=== PATIENT | female | born 1950 | race Caucasian/White ===

== ENCOUNTER 2020-03-10 15:33 | Outpatient (REF) | payer MEDICARE, OTHER, SELFPAY | END 2020-03-10 15:34 | disposition home or self-care (01) | LOC: HO.LAB 15:33 | PROVIDERS: Visit Provider Internal Medicine | DX: Z20.828 Contact with and (suspected) exposure to other viral communicable diseases (principal) | CPT/HCPCS: C9803; U0003 ==

== ENCOUNTER 2020-05-07 16:03 | Outpatient (REF) | payer MEDICARE, OTHER, SELFPAY | END 2020-05-07 16:04 | disposition home or self-care (01) | LOC: HO.LNP 16:03 | PROVIDERS: Visit Provider Specialist | DX: H16.041 Marginal corneal ulcer, right eye (principal) | CPT/HCPCS: 87071; 87102; 87205 ==

== ENCOUNTER 2020-05-14 15:47 | Outpatient (REF) | payer MEDICARE, OTHER, SELFPAY ==
--- NOTE | ~2020-05-14 | MM_ITS ---
EXAMINATION: MM SCREENING DIGITAL BREAST TOMOSYNTHESIS, BILATERAL CLINICAL INFORMATION: Screening. Asymptomatic. The lifetime risk of breast cancer based on the Tyrer-Cuzick Model is 5%. COMPARISON: Mammography: 01/04/2019, 11/27/2017, 10/19/2016, 09/17/2015 TECHNIQUE: Digital breast tomosynthesis is performed in both the craniocaudal and mediolateral oblique views along with computer-aided detection (CAD). Synthesized 2D images are generated from the tomosynthesis. Additional exaggerated left CC view is provided. FINDINGS: There are scattered areas of fibroglandular density (ACR BI-RADS breast composition Category b). The left breast has subtle architectural changes posterior upper outer quadrant 8-9 cm from nipple representing change from prior studies. Patient will be recalled for additional imaging. Right breast has an asymmetric density mid outer quadrant on CC view, 5.5 cm from nipple. There is definite correlate on MLO view. Additional views will be requested. The remainder of the breasts show no significant changes. There is a small node posterior outer left breast along posterior nipple line. There is a biopsy clip marker right breast central 1:00 position. There are scattered vascular calcifications. Scattered dermal lesions are again seen overlying both breasts. MM/MM tomosynthesis screening BI IMPRESSION: 1. Left: Architectural changes posterior upper outer quadrant. 2. Right: Asymmetric density mid outer quadrant on CC view. ASSESSMENT: BI-RADS 0: Incomplete - Need Additional Imaging Evaluation RECOMMENDATION: 1. Additional views of the bilateral breasts (bilateral rolled CC x 2; bilateral ML). 2. Targeted ultrasound if warranted after review of the additional views. 3. Radiology department staff will contact the patient for additional imaging. This patient's information was entered into a reminder system with a target due date for their next mammogram.
== END 2020-05-14 15:48 | disposition home or self-care (01) ==
LOC: HO.MAMMO 15:47
PROVIDERS: PCP Internal Medicine; Visit Provider Internal Medicine
DX: Z12.31 Encounter for screening mammogram for malignant neoplasm of breast (principal)
CPT/HCPCS: 77063; 77067

== ENCOUNTER 2020-06-12 13:52 | Outpatient (REF) | payer MEDICARE, OTHER, SELFPAY ==
--- NOTE | ~2020-06-12 | MM_ITS ---
EXAMINATION: MM DIAGNOSTIC DIGITAL BREAST TOMOSYNTHESIS, BILATERAL US BILATERAL TARGETED BREAST CLINICAL INFORMATION: Bilateral densities upper outer aspect of the breasts. COMPARISON: Mammography: 05/14/2020 and studies dating back to 02/21/2012. TECHNIQUE: Digital breast Tomosynthesis is performed. 2D images are generated from the Tomosynthesis. The following views are obtained: Bilateral craniocaudal medial and lateral rolled views and bilateral 90 degrees mediolateral views. Targeted bilateral breast ultrasound. FINDINGS: There are scattered areas of fibroglandular density (ACR BI-RADS breast composition Category b). Within the upper outer aspect of the left breast approximately 10 cm from the nipple, there is persistence of a spiculated density which is suspicious for malignancy. No associated microcalcifications are appreciated. Study of the right breast does demonstrate persistent suspicious mass. This area appears be related to superimposition of fibroglandular tissue. Targeted left breast ultrasound demonstrated at the 1 o'clock position approximately 10 cm from the nipple is an ill-defined region of hypoechoic tissue with some distal sound shadowing suspicious for possible malignancy. There is some vascularity seen about the superior margin of the lesion. Ultrasound-guided core biopsy is recommended. There is a complex cyst seen in the left breast 5 o'clock position 3 cm from the nipple. There is also a grouping of small complex cyst 2 o'clock position 3 cm from the nipple. Scanning of the left axilla did not demonstrate any abnormal lymph nodes. Lymph nodes are noted to have thin cortices without evidence of lobulation. Scanning of the upper outer aspect of the right breast did not demonstrate any abnormal cystic or solid mass. No region of abnormal distal sound shadowing appreciated. Results are discussed with the patient at time of visit. MM/MM tomosynthesis added view BI IMPRESSION: Suspicious left breast lesion 1 o'clock position 10 cm from the nipple for which ultrasound-guided core needle biopsy is recommended. No suspicious right breast abnormality appreciated. ASSESSMENT: BI-RADS 4: Suspicious. RECOMMENDATION: Ultrasound-guided core biopsy left breast lesion. The above was discussed with the patient at time of the examination. [facility] patient calibration tester called above recommendation to referring provider's office. This patient's information was entered into a reminder system with a target due date for their next mammogram.
--- NOTE | ~2020-06-12 | US_ITS ---
EXAMINATION: US DIAGNOSTIC ULTRASOUND BREAST, RIGHT CLINICAL INFORMATION: Upper-outer densities both breast. COMPARISON: Mammography of same day and studies dating back to February 21, 2012. TECHNIQUE: Ultrasound of the breast is performed with real-time barroso scale imaging and color Doppler. FINDINGS: Targeted left breast ultrasound demonstrated at the 1:00 position approximately 10 cm from the nipple an ill-defined 4 mm region of hypoechoic tissue with some distal sound shadowing suspicious for possible malignancy. There is some vascularity seen about the superior margin of the lesion. Ultrasound-guided core biopsy is recommended. There is complex cyst seen in the left breast 5:00 position 3 cm from nipple. There is also a grouping of small complex cyst 2:00 position 3 cm from the nipple. Scanning of the left axilla did not demonstrate any abnormal lymph nodes. Lymph nodes are noted to have thin cortices without evidence of loculation. Scanning of the upper outer aspect of the right breast did not demonstrate any abnormal cystic or solid mass. No region of abnormal distal sound shadowing appreciated. Results are discussed with the patient at time of visit. US/US breast RT limited IMPRESSION: Suspicious left breast lesion 1:00 position 10 cm from the nipple for which ultrasound-guided core needle biopsy is recommended. No suspicious right breast abnormality appreciated. ASSESSMENT: BI-RADS 4: Suspicious RECOMMENDATION: Ultrasound-guided core biopsy left breast lesion. The above was discussed with the patient at time of the examination. [facility] patient retail sales advisor called above recommendation to referring provider's office. .
--- NOTE | ~2020-06-12 | US_ITS ---
EXAMINATION: US DIAGNOSTIC ULTRASOUND BREAST, LEFT CLINICAL INFORMATION: Bilateral breast densities. COMPARISON: Mammography of same day and studies dating back to February 21, 2012. TECHNIQUE: Ultrasound of the breast is performed with real-time barroso scale imaging and color Doppler. FINDINGS: Targeted left breast ultrasound demonstrated at the 1:00 position approximately 10 cm from the nipple an ill-defined 4 mm region of hypoechoic tissue with some distal sound shadowing suspicious for possible malignancy. There is some vascularity seen about the superior margin of the lesion. Ultrasound-guided core biopsy is recommended. There is complex cyst seen in the left breast 5:00 position 3 cm from nipple. There is also a grouping of small complex cysts 2:00 position 3 cm from the nipple. Scanning of the left axilla did not demonstrate any abnormal lymph nodes. Lymph nodes are noted to have thin cortices without evidence of loculation. Scanning of the upper outer aspect of the right breast did not demonstrate any abnormal cystic or solid mass. No region of abnormal distal sound shadowing appreciated. Results are discussed with the patient at time of visit. US/US breast LT limited IMPRESSION: Suspicious left breast lesion 1:00 position 10 cm from the nipple for which ultrasound-guided core needle biopsy is recommended. No suspicious right breast abnormality appreciated. ASSESSMENT: BI-RADS 4: Suspicious RECOMMENDATION: Ultrasound-guided core biopsy left breast lesion. The above was discussed with the patient at time of the examination. [facility] patient materials engineer called above recommendation to referring provider's office. .
== END 2020-06-12 13:53 | disposition home or self-care (01) ==
LOC: HO.MAMMO 13:52
PROVIDERS: Visit Provider Internal Medicine
DX: R92.2 Inconclusive mammogram (principal)
CPT/HCPCS: 76642; 77062; 77066

== ENCOUNTER 2020-06-22 07:52 | Outpatient (REF) | payer MEDICARE, OTHER, SELFPAY ==
--- NOTE | ~2020-06-22 | MM_ITS ---
EXAMINATION: ULTRASOUND GUIDED CORE BIOPSY BREAST, LEFT POST PROCEDURE DIGITAL MAMMOGRAM, LEFT CLINICAL INFORMATION: Small irregular density upper outer quadrant left breast with focal shadowing on ultrasound. COMPARISON: Mammography 05/14/2020, 06/12/2020, targeted ultrasound 06/12/2020. FINDINGS: Proper informed consent is obtained from the patient after discussion of the procedure, potential risks and complications, and alternatives. Patient was given an opportunity for questions. The patient appeared to understand. The patient consented to the procedure and signed the consent form. GUIDANCE: Ultrasound-guided; aseptic technique. LESION: Small irregular hypoechoic density with shadowing under 1 cm left 2:00 position 8 cm from nipple. APPROACH: Oblique lateral medial. ANESTHESIA: 10 mL 1% lidocaine. DERMATOTOMY: Single skin yoshi dermatotomy performed. NEEDLE: 14-gauge Achieve core biopsy device with 13.5-gauge co-axial guide needle. CORES: 6. CLIP: HydroMARK; shape: open coil. POST PROCEDURE UNILATERAL DIGITAL MAMMOGRAM: The post biopsy mammogram is performed in separate room using separate digital mammography equipment from the biopsy procedure. CC and ML views are obtained. There are scattered areas of fibroglandular density (breast composition category: b). The clip marker is in position, residing adjacent to the mammographic density noted recently. Ultrasound and mammographic findings are concordant. No gross hematoma. The patient tolerated the procedure well. No immediate complications. Home instructions reviewed with the patient. Final pathology results are pending. MM/MM diagnostic mammo unilat LT IMPRESSION: 1. Status post ultrasound-guided core biopsy left breast. 2. Clip placed: HydroMARK; shape: open coil. 3. Pathology pending. An addendum report will be issued.
== END 2020-06-22 07:53 | disposition home or self-care (01) ==
LOC: HO.MAMMO 07:52
PROVIDERS: PCP Internal Medicine; Visit Provider Internal Medicine
DX: C50.412 Malignant neoplasm of upper-outer quadrant of left female breast (principal); Z17.0 Estrogen receptor positive status [ER+]
CPT/HCPCS: 19083; 77065; 88305; 88342; 88360

== ENCOUNTER 2020-10-08 09:40 | Outpatient (REF) | payer MEDICARE, OTHER, SELFPAY ==
--- NOTE | ~2020-10-08 | MM_ITS ---
EXAMINATION: BONE DENSITOMETRY CLINICAL INDICATION: Postmenopausal. COMPARISON: Previous BD dated 01/23/2014 and baseline BD dated 06/26/2007. TECHNIQUE: Using a CDP DXA System (software version: 13.1) manufactured by [employer], dual-energy x-ray absorptiometry was performed of the lumbar spine and left hip. The images are of good technical quality. Summary results are attached. FINDINGS: AP SPINE L1-L4: Current: BMD 1.239 g/cm2, Z-score 1.6, T-score 0.5, normal, 0.5% increase from previous, 0.3% decrease from baseline (<5% change is not significant). Prior: BMD 1.233 g/cm2. Baseline: BMD 1.243 g/cm2. LEFT FEMUR, NECK: Current: BMD 0.819 g/cm2, Z-score -0.2, T-score -1.6, osteopenia. Prior: BMD 0.858 g/cm2. Baseline: BMD 0.864 g/cm2. LEFT FEMUR, TOTAL: Current: BMD 0.849 g/cm2, Z-score -0.1, T-score -1.3, osteopenia, 4.4% decrease from previous, 7.5% decrease from baseline (<5% change is not significant). Prior: BMD 0.888 g/cm2. Baseline: BMD 0.918 g/cm2. IDENTIFIED RISK FACTORS: Menopause, rheumatoid arthritis. HISTORY OF FRACTURE: None listed. MEDICATIONS: Vitamin D. MM/XR DEXA axial skeleton IMPRESSION: 1. DIAGNOSIS: Osteopenia based on the lowest T-score value of -1.6 in the femoral neck applying World Health Organization criteria. 2. 10-YEAR FRACTURE RISK PREDICTION, FRAX: Major osteoporotic fracture (clinical spine, forearm, hip or shoulder) 13.3%. Hip fracture 2.4%. 3. Treatment Recommendations: NOF guidelines recommend consideration for treatment in postmenopausal women and men age 50 and older presenting with the following: -A hip or vertebral (clinical or morphometric) fracture. -T-score less than or equal to -2.5 at the femoral neck or spine after appropriate evaluation to exclude secondary causes. -Low bone mass at the hip or spine and a 10-year fracture probability by FRAX of greater than or equal to 3% for hip fracture or greater than or equal to 20% for major osteoporotic fracture based on the [place] adapted WHO algorithm. 4. Other Recommendations: All treatment decisions require clinical judgment and consideration of individual patient factors, including patient preferences, comorbidities, previous drug use, risk factors not captured in the FRAX model (e.g. frailty, falls, vitamin D deficiency, increased bone turnover, interval significant decline in bone density) and possible under or overestimation of fracture risk by FRAX. Additional medical evaluation for secondary cause of low bone mineral density may be appropriate. FUTURE SCAN RECOMMENDATION: People with diagnosed cases of osteoporosis or at high risk for fracture should have regular bone mineral density tests. For patients eligible for Medicare, routine testing is allowed once every 2 years. The testing frequency can be increased to one year for patients who have rapidly progressing disease, those who are receiving or discontinuing medical therapy to restore bone mass, or have additional risk factors.
== END 2020-10-08 09:41 | disposition home or self-care (01) ==
LOC: HO.MAMMO 09:40
PROVIDERS: Visit Provider Internal Medicine
DX: Z13.820 Encounter for screening for osteoporosis (principal); M85.80 Other specified disorders of bone density and structure, unspecified site; M06.9 Rheumatoid arthritis, unspecified; Z78.0 Asymptomatic menopausal state; Z79.899 Other long term (current) drug therapy
CPT/HCPCS: 77080

== ENCOUNTER 2021-08-11 07:55 | Day surgery (SDC) | payer MEDICARE, OTHER, SELFPAY ==
[2021-08-05 11:35] VITALS: BMI 30.6
--- NOTE | 2021-08-10 12:59 | HO.ANESPROP2 ---
Documented by User: Karen Steward NP 08/10/21 13:00 HPI - Anesthesia Eval Consult details Narrative: 70yo F for Colonoscopy [facility] Past Medical History Medical History Anxiety Breast cancer Elevated cholesterol HTN (hypertension) Surgical History Surgical History H/O colonoscopy History of lumpectomy of left breast History of total bilateral knee replacement Social History Social History (Updated 08/05/21 @ 11:34 by Giovanna Rivers RN) Patient Tobacco Use Status: Former Tobacco user Quit Date: quit age 20 Tobacco use type: Cigarette Use of substances other than those prescribed or required for medical reasons: No Are you DNR?: No Advance Directives: No Advance Directives Information Provided: Yes Meds Allergies Allergy/AdvReac Type Severity Reaction Status Date / Time No Known Allergies Allergy Unverified 11/28/19 15:05 [No Known Allergies*] Home Medications Medication Instructions Recorded Confirmed Last Taken Type anastrozole 1 mg tablet 1 tab PO DAILY 08/05/21 08/05/21 Unknown History cholecalciferol (vitamin D3) 25 25 mcg PO DAILY 08/05/21 08/05/21 Unknown History mcg (1,000 unit) capsule (Vitamin D3) citalopram 40 mg tablet 1 tab PO DAILY 08/05/21 08/05/21 Unknown History losartan 50 mg tablet 1 tab PO DAILY 08/05/21 08/11/21 08/11/21 History simvastatin 20 mg tablet 1 tab PO BEDTIME 08/05/21 08/05/21 Unknown History Exam Exam Date and Time: August 10, 2021 1259 Height,Weight and Vital Signs: Height 5 ft 5.5 in Weight 84.822 kg Assessment and Plan Assessment Anesthesia Assessment: Chart Reviewed Documented by User: Ann Melgoza MD 08/11/21 10:43 [facility] Past Medical History Medical History Anxiety Breast cancer Elevated cholesterol HTN (hypertension) Family History Family history of problems with anesthesia: No Surgical History Surgical History H/O colonoscopy History of lumpectomy of left breast History of total bilateral knee replacement History of Problems with Anesthesia: No Social History Social History (Updated 08/05/21 @ 11:34 by Giovanna Rivers RN) Patient Tobacco Use Status: Former Tobacco user Quit Date: quit age 20 Tobacco use type: Cigarette Use of substances other than those prescribed or required for medical reasons: No Are you DNR?: No Advance Directives: No Advance Directives Information Provided: Yes Meds Allergies Allergy/AdvReac Type Severity Reaction Status Date / Time No Known Allergies Allergy Unverified 11/28/19 15:05 [No Known Allergies*] Home Medications Medication Instructions Recorded Confirmed Last Taken Type anastrozole 1 mg tablet 1 tab PO DAILY 08/05/21 08/05/21 Unknown History cholecalciferol (vitamin D3) 25 25 mcg PO DAILY 08/05/21 08/05/21 Unknown History mcg (1,000 unit) capsule (Vitamin D3) citalopram 40 mg tablet 1 tab PO DAILY 08/05/21 08/05/21 Unknown History losartan 50 mg tablet 1 tab PO DAILY 08/05/21 08/11/21 08/11/21 History simvastatin 20 mg tablet 1 tab PO BEDTIME 08/05/21 08/05/21 Unknown History Exam Airway Mallampati Class: II TM Dist: >3cm Loose/Missing/Broken Teeth: Yes (Some broken) Heart: RRR Lungs: CTAB Assessment and Plan Assessment Anesthesia Assessment: Anesthesia Plan Discussed Final Anesthetic Review Family History of Problems with Anesthesia: No History of Problems with Anesthesia: No NPO: Yes ASA Class: II Final Preanesthetic Review: No Changes in Pt Med Stat, Meds/Allgs Chart Reviewed, Consent Obtained/Reviewed and Anes Risks/Benef Reviewed Patient Risk: Low Procedure Risk: Low Assessment/Block/Sedation in SS: Assess/Block/Sedation-SS Anesthetic Plan Anesthetic Plan: MAC: Disposition: Standard PACU
[2021-08-11 08:26] VITALS: BMI 30.1
[2021-08-11 10:18] VITALS: BP 145/76; PULSE 71; RESP 18; TEMP 36.5; O2SAT 96
[2021-08-11] MEDS: Lactated Ringers 1,000 ML 100 ML IVCONT (10:22)
[2021-08-11 11:38] VITALS: BP 139/71; PULSE 67; RESP 16; TEMP 36.7; O2SAT 97
--- NOTE | 2021-08-11 11:40 | P.BOP_ITS ---
Brief Operative Note Date of Service: 08/11/21 Pre-op diagnosis: Screening Post-op diagnosis: other (Colon polyps) Procedure: Colonoscopy to cecum with hot snare polypectomy x 2, and placement of 1 Resolution clip Surgeon: Miah Randall Anesthesia: MAC Was an Frame Gate Mortiser Operator used for this Procedure?: No Estimated blood loss (mL): 2.0 Pathology: other (A. Ascending colon polyps) Condition: stable Disposition: PACU
[2021-08-11 11:53] VITALS: BP 132/64; PULSE 62; RESP 16; TEMP 36.7; O2SAT 97
--- NOTE | 2021-08-11 12:28 | OP_ITS ---
SURGEON: Miah Randall MD INDICATIONS: The patient presents for evaluation of colorectal cancer screening and personal history of tubular adenoma of the colon. Full consent was obtained from her for this, including risks of bleeding and perforation. PREOPERATIVE DIAGNOSIS: POSTOPERATIVE DIAGNOSIS: PROCEDURE PERFORMED: Colonoscopy to the cecum with hot snare polypectomy x 2 and placement of 1 Resolution clip. ESTIMATED BLOOD LOSS: COMPLICATIONS: ANESTHESIA: Monitored anesthesia care. ASSISTANTS: SPECIMENS: PREOPERATIVE DIAGNOSES: Colorectal cancer screening and personal history of tubular adenoma of the colon. POSTOPERATIVE DIAGNOSES: Colorectal cancer screening and personal history of tubular adenoma of the colon, colon polyps, diverticulosis, internal and external hemorrhoids. DESCRIPTION OF PROCEDURE: The patient was placed in the left lateral decubitus position. The digital rectal exam revealed no abnormalities other than some external hemorrhoids. The Olympus video pediatric colonoscope was entered into the rectum and advanced easily to the cecum. Once in the cecum, I did identify normal-appearing cecal pouch with appendiceal orifice and a normal-appearing ileocecal valve. There was transillumination of light deep in the right lower quadrant. The entire cecum and ileocecal valve appeared normal. The scope was slowly withdrawn assessing all mucosal surfaces carefully. Preparation for the most part was very good, although there were some areas of liquid stool, which were irrigated and suctioned away as best as possible. In the proximal ascending colon were 2 polyps. One was approximately 10-12 mm in diameter and was removed by hot snare polypectomy and recovered by suction. The polypectomy site did have some oozing, but this was well controlled with cauterization by the tip of the snare. There was no sign of any residual bleeding nor polyp. Opposite that polyp was a larger flat and lobulated polyp approximately 15 mm in diameter. This was removed in piecemeal fashion by hot snare polypectomy with multiple pieces recovered by suction. Post-polypectomy, there did not appear to be any residual polyp nor bleeding. I did place a single Resolution clip on the polypectomy site with good deployment and good hemostasis. The scope was then slowly withdrawn. No further polyps were seen. There was no sign of any colitis nor angiodysplasia. There was a significant amount of diverticulosis in the descending and sigmoid colon. In the rectum, the scope was retroflexed visualizing internal hemorrhoids, but no other pathology. The rectal mucosa appeared normal. The scope was straightened and withdrawn from the patient. She tolerated the procedure well and was returned to the recovery area in stable condition. IMPRESSION: 1. Colon polyps 2. Diverticulosis. 3. Internal and external hemorrhoids. PLAN: The results of the pathology will be checked. Given the finding of the larger polyp that was removed, I would recommend a repeat colonoscopy in 1 year for further surveillance to reinspect that polypectomy site. She was advised not to use any aspirin or NSAIDs for at least 1 week. This has been discussed with her . MD AMBER Ahuja/KYM / [id number] MTDD
== END 2021-08-11 12:21 | disposition home or self-care (01) ==
PROVIDERS: PCP Internal Medicine; Visit Provider Internal Medicine
PROC: 0DJD8ZZ Inspection of Lower Intestinal Tract, Via Natural or Artificial Opening Endoscopic (ICD-10-PCS; CPT 45378; principal; 2021-08-11 09:10)
DX: Z12.11 Encounter for screening for malignant neoplasm of colon (principal); Z86.010 Personal history of colon polyps; D12.2 Benign neoplasm of ascending colon; K57.30 Diverticulosis of large intestine without perforation or abscess without bleeding; K64.8 Other hemorrhoids; K64.4 Residual hemorrhoidal skin tags; I10 Essential (primary) hypertension; E78.5 Hyperlipidemia, unspecified; F41.1 Generalized anxiety disorder; Z85.3 Personal history of malignant neoplasm of breast; Z92.3 Personal history of irradiation; Z96.653 Presence of artificial knee joint, bilateral; Z87.891 Personal history of nicotine dependence
CPT/HCPCS: 45385; 88305

== ENCOUNTER 2023-08-14 11:24 | Day surgery (SDC) | payer MEDICARE, OTHER, SELFPAY ==
--- NOTE | 2023-08-11 09:59 | P.CONAN_ITS ---
Documented by User: Karen Steward NP 08/11/23 09:59 HPI - Anesthesia Eval Consult details Narrative: 72yo F for Colonoscopy [facility] Past Medical History Medical History (Updated 08/11/23 @ 08:30 by Gretel Reyes, JESSIKA) Cataract Breast cancer Anxiety Elevated cholesterol HTN (hypertension) Family History Family history of problems with anesthesia: No Surgical History Surgical History History of total bilateral knee replacement History of lumpectomy of left breast H/O colonoscopy History of Problems with Anesthesia: No Social History Social History (Updated 08/05/21 @ 11:34 by Giovanna Rivers RN) Patient Tobacco Use Status: Former Tobacco user Tobacco use type: Cigarette Use of substances other than those prescribed or required for medical reasons: No Are you DNR?: No Advance Directives: No Advance Directives Information Provided: Yes Meds Allergies Allergy/AdvReac Type Severity Reaction Status Date / Time No Known Allergies Allergy Verified 08/14/23 11:51 [No Known Allergies*] Home Medications ?Medication ?Instructions ?Recorded ?Confirmed ?Last Taken ?Type anastrozole 1 mg tablet 1 tab PO DAILY 08/05/21 08/05/21 Unknown History cholecalciferol (vitamin D3) 25 25 mcg PO DAILY 08/05/21 08/05/21 Unknown History mcg (1,000 unit) capsule (Vitamin D3) citalopram 40 mg tablet 1 tab PO DAILY 08/05/21 08/05/21 Unknown History losartan 50 mg tablet 1 tab PO DAILY 08/05/21 08/11/21 08/13/23 History simvastatin 20 mg tablet 1 tab PO BEDTIME 08/05/21 08/05/21 Unknown History Assessment and Plan Assessment Anesthesia Assessment: Chart Reviewed Final Anesthetic Review Family History of Problems with Anesthesia: No History of Problems with Anesthesia: No Documented by User: Nathen Abad MD 08/14/23 12:19 [facility] Past Medical History Medical History (Updated 08/11/23 @ 08:30 by Gretel Reyes, JESSIKA) Cataract Breast cancer Anxiety Elevated cholesterol HTN (hypertension) Surgical History Surgical History History of total bilateral knee replacement History of lumpectomy of left breast H/O colonoscopy Social History Social History (Updated 08/05/21 @ 11:34 by Giovanna Rivers RN) Patient Tobacco Use Status: Former Tobacco user Tobacco use type: Cigarette Use of substances other than those prescribed or required for medical reasons: No Are you DNR?: No Advance Directives: No Advance Directives Information Provided: Yes Meds Allergies Allergy/AdvReac Type Severity Reaction Status Date / Time No Known Allergies Allergy Verified 08/14/23 11:51 [No Known Allergies*] Home Medications ?Medication ?Instructions ?Recorded ?Confirmed ?Last Taken ?Type anastrozole 1 mg tablet 1 tab PO DAILY 08/05/21 08/05/21 Unknown History cholecalciferol (vitamin D3) 25 25 mcg PO DAILY 08/05/21 08/05/21 Unknown History mcg (1,000 unit) capsule (Vitamin D3) citalopram 40 mg tablet 1 tab PO DAILY 08/05/21 08/05/21 Unknown History losartan 50 mg tablet 1 tab PO DAILY 08/05/21 08/11/21 08/13/23 History simvastatin 20 mg tablet 1 tab PO BEDTIME 08/05/21 08/05/21 Unknown History Exam Airway Mallampati Class: II TM Dist: >3cm Neck ROM: Full Loose/Missing/Broken Teeth: No Heart: rrr Lungs: cta Assessment and Plan Assessment Anesthesia Assessment: Anesthesia Plan Discussed Final Anesthetic Review NPO: Yes ASA Class: II Final Preanesthetic Review: No Changes in Pt Med Stat, Meds/Allgs Chart Reviewe d, Consent Obtained/Reviewed and Anes Risks/Benef Reviewed Patient Risk: Intermediate Procedure Risk: Intermediate Anesthetic Plan Anesthetic Plan: TIVA Disposition: Standard PACU
[2023-08-14 11:41] VITALS: BP 127/84; PULSE 90; RESP 16; TEMP 36.2; O2SAT 96
[2023-08-14] MEDS: Lactated Ringers 1,000 ML 100 ML IVCONT (12:01)
[2023-08-14 14:14] VITALS: BP 150/78; PULSE 66; RESP 16; TEMP 36.1; O2SAT 98
--- NOTE | 2023-08-14 14:16 | P.BOP_ITS ---
Brief Operative Note Date of Service: 08/14/23 Pre-op diagnosis: Screening Post-op diagnosis: other (Colon polyps) Procedure: Colonoscopy to the cecum with hot snare polypectomy and bx/removal of polyps Surgeon: Miah Randall MD Anesthesia: MAC Was an Legal Librarian used for this Procedure?: No Estimated blood loss (mL): 2.0 Pathology: other (A. Polyp at 30cm B. Transverse colon polyp C. Ascending colon polyps D. Polyp at 60cm E. Polyp at 20cm) Condition: stable Disposition: PACU
[2023-08-14 14:29] VITALS: BP 131/83; PULSE 64; RESP 16; O2SAT 98
[2023-08-14 14:45] VITALS: BP 135/74; PULSE 65; RESP 16; TEMP 36.2; O2SAT 97
--- NOTE | 2023-08-14 14:57 | OP_ITS ---
DATE OF SERVICE: 08/14/2023 SURGEON: Miah Randall MD INDICATIONS: The patient presents for evaluation of colorectal cancer screening and personal history of colon polyps. Full consent has been obtained from her for this, including risks of bleeding and perforation. PREOPERATIVE DIAGNOSIS: POSTOPERATIVE DIAGNOSIS: PROCEDURE PERFORMED: Colonoscopy to cecum with hot snare polypectomies and biopsy and removal of polyps. ESTIMATED BLOOD LOSS: COMPLICATIONS: ANESTHESIA: Monitored anesthesia care. ASSISTANTS: SPECIMENS: PREOPERATIVE DIAGNOSES: Colorectal cancer screening and personal history of colon polyps. POSTOPERATIVE DIAGNOSES: Colorectal cancer screening, personal history of colon polyps, colon polyps, diverticulosis, and internal hemorrhoids. DESCRIPTION OF PROCEDURE: The patient was placed in the left lateral decubitus position. The digital rectal exam revealed some external hemorrhoids. The Olympus video pediatric colonoscope was then entered into the rectum and advanced to the cecum. Advancement past the sigmoid colon was somewhat difficult due to a lot of diverticulosis.. Once in the cecum, I did identify normal-appearing cecal pouch with appendiceal orifice and a normal-appearing ileocecal valve. The entire cecum was well visualized and appeared normal. The scope was then slowly withdrawn assessing all mucosal surfaces carefully. Preparation was excellent. In the ascending colon, were 2 less than 5 mm polyps in the proximal portion of the ascending colon, which were both biopsied and completely removed with the cold biopsy forceps. In the more distal portion of the ascending colon, was an approximately 10 mm polyp, which was removed by hot snare polypectomy and recovered by suction. The polypectomy site appeared clean, without any sign of residual polyp nor bleeding. There were some diverticula noted in the ascending colon as well. In the transverse colon, was a flat, approximately 3 or 4 mm polyp, which was biopsied and completely removed with the cold biopsy forceps. At 60 cm, at 30 cm, and at 20 cm, were polyps ranging in size between 8 and 10 mm, which were all removed by hot snare polypectomy and recovered by suction. Of note, all the polypectomy sites removed by hot snare, appeared clean, without any sign of residual polyp nor bleeding. There was a moderate amount of diverticulosis in the sigmoid and some in the descending colon. I did not visualize any other polyps, colitis, nor angiodysplasia. In the rectum, scope was retroflexed, visualizing internal hemorrhoids, but no other pathology. The rectal mucosa appeared normal. Scope was straightened and withdrawn from the patient. She tolerated the procedure well and was returned to the recovery area in stable condition. IMPRESSION: 1. Colon polyps. 2. Diverticulosis. 3. Internal hemorrhoids. 4. External hemorrhoids. PLAN: The results of the pathology will be checked. I would recommend a repeat colonoscopy within 3 years for further surveillance given her previous findings and today's findings. She was advised not to use any aspirin and NSAIDs for 2 weeks. This has been reviewed with her . MD AMBER Ahuja/KYM / [id number] MTDD
--- OUTSIDE RECORDS SUMMARY | 2023-08-18 09:22 | XMS_ITS | Continuity of Care Document ---
Author Organization [facility] ter Address [address] [place] [address]- Care Team Providers Care Forest Fire Warden Name Role Phone Jakob Quinn MD Primary Care Physician [place] [facility] [place] 11/07/[address] [address]- [facility] Attending Physician: AdmValentin chavez Admitting Physician: AdmValentin chavez Referring Physician: Admtr, Valentin Referring Physician: Francisca Gamino Allergies, Adverse Reactions, Alerts Substance Reaction Severity Status NKA Active Immunizations Given and Recorded Vaccine Date Status Refusal Reason influenza virus vaccine, inactivated 1 01/18/12 Gi thalia Influenza Virus Vaccine (oldterm) 12/31/10 Given Tet/Diphth/Acel, Pertussis (oldterm) 06/20/07 Give n Influenza Inactive (IM) (oldterm) 01/12/07 Given 1Admin Note: VIS Given Flulaval Medications acetaminophen 325 mg oral tablet 650 mg, By Mouth, Every 6 hours, Refills 0, Maintenance, 10/23/19 7:29:00 EDT Start Date: 10/23/19 Status: Ordered Aspirin Tablet 325 mg, By Mouth, 2 times a day, Refills 0, Maintenance, 10/23/19 7:29:00 EDT Start Date: 10/23/19 Status: Ordered celecoxib 200 mg oral capsule 1 capsule = 200 mg, By Mouth, Daily, 0 Refills, Maintenance, 10/23/19 7:29:00 EDT, Capsule Start Date: 10/23/19 Status: Ordered citalopram 40 mg oral tablet 40 mg, 1, tablet, By Mouth, Daily, # 30 tablet, Refills 0, Maintenance, 10/08/19 17:06:00 EDT Start Date: 10/08/19 Status: Ordered Colace Capsule 100 mg, 1, capsule, By Mouth, 2 times a day, Refills 0, Maintenance, 10/23/19 7:29:00 EDT Start Date: 10/23/19 Status: Ordered losartan 50 mg oral tablet 50 mg, 1, tablet, By Mouth, Daily, # 30 tablet, Refills 0, Maintenance, 10/08/19 17:06:00 EDT Start Date: 10/08/19 Status: Ordered Maalox Plus Liquid 30 mL, By Mouth, Every 4 hours, PRN Other, Heartburn, 0 Refills, Maintenance, 10/23/19 7:29:00 EDT,Suspension Start Date: 10/23/19 Status: Ordered Milk of Magnesia Liquid 30 mL, By Mouth, Daily, PRN Constipation, 0 Refills, Maintenance, 10/23/19 7:29:00 EDT, Suspension Start Date: 10/23/19 Status: Ordered MiraLax Powder 1 pack/packet = 17 Gm, By Mouth, Daily, 0 Refills, Maintenance, 10/23/19 7:29:00 EDT, Powder Start Date: 10/23/19 Status: Ordered pantoprazole 40 mg oral delayed release tablet = 40 mg, By Mouth, Daily, 0 Refills, Maintenance, 10/23/19 7:29:00 EDT, EC Tablet Start Date: 10/23/19 Status: Ordered senna 187 mg oral tablet 1 tablet = 8.6 mg, By Mouth, Daily at bedtime, 0 Refills, Maintenance, 10/23/19 7:29:00 EDT, Tablet Start Date: 10/23/19 Status: Ordered simvastatin 20 mg oral tablet 1 tablet = 20 mg, By Mouth, Daily at bedtime, # 90 tablet, 3 Refills, Maintenance, 11/06/13 15:22:15, Tablet, 1 tablet By Mouth Daily at bedtime,x90 days Start Date: 11/06/13 Stop Date: 11/01/14 Status: Ordered Problem List Condition Effective Dates Status Health Status Inform ant Anxiety(Confirmed) Active Hypercholesterolemia(Confirmed) Active Hypertension(Confirmed) Active Insomnia(Confirmed) Active
--- OUTSIDE RECORDS SUMMARY | 2023-08-18 09:22 | XMS_ITS | Continuity of Care Document ---
Author Organization [facility] Address [address] [place] [address]- Care Team Providers Care Auctioneer Tobacco Name Role Phone Kai LUCIO, Jakob Primary Care Physician [phone] Encounter 10/24/19 - 11/04/19 [facility] [address] [place] [address]- [facility] Discharge Disposition: GOALS MET Allergies, Adverse Reactions, Alerts Substance Reaction Severity [...]
--- OUTSIDE RECORDS SUMMARY | 2023-08-18 09:22 | XMS_ITS | Continuity of Care Document ---
Author Organization [facility] ter Address [address] [place] [address]- Care Team Providers Care Experience Designer Name Role Phone Jakob Quinn MD Primary Care Physician [phone] [place] [facility] [place] 10/23/[address] [address]- [facility] Discharge Disposition: A-Transfer VNA/Home Health Attending Physician: Aravind Boogie MD Admitting Physician: Aravind Boogie MD Referring Physician: Aravind Boogie MD Allergies, Adverse Reactions, Alerts Substance Reaction Severity [...] 7:29:00 EDT Start Date: 10/23/19 Status: Ordered HYDROmorphone 4 mg oral tablet See Instructions, PRN Pain , Moderate, 0.5-1 tablet every 3 hours as needed for pain, # 56 tablet, 0 Refills, Acute 10/30/19 7:27:00 EDT, 10/23/19 7:26:00 EDT, Tablet, [facility], Partial fill upon patient request, 165, cm, 10/23/19 7:01... Start Date: 10/23/19 Stop Date: 10/30/19 Status: Ordered losartan 50 mg oral tablet [...] Active Hypercholesterolemia(Confirmed) Active Hypertension(Confirmed) Active Insomnia(Confirmed) Active Results Radiology Reports * Exam Date Time Procedure Performing Provider Status 10/22/19 10:43 PM Knee 1 or 2 Views Right Liam Wick ; Tank (Verified) Notes: (Knee 1 or 2 Views Right) Reason For Exam: Postop RESULT: Knee 1 or 2 Views Right Knee 1 or 2 Views Right INDICATION: Reason: Postop; Clinical Question(s): Other:; Implant Position; Special Instructions: Do today at 2200, No flexed knee in the lateral position. Keep leg straight; 2 Views TECHNIQUE: Single AP view. COMPARISON: None. FINDINGS: The patient has had a total knee replacement. There is satisfactory positioning of the femoral and tibial components of the knee replacement. There is no fracture. IMPRESSION: 1. Satisfactory initial postoperative appearance total knee replacement. 2. No fracture seen WSN: [id number] Ordering Physician: Albert Olson V Dictated By: Nick Ross MD Dictated Date/Time: 10/22/19 10:49 p Reviewed By: Nick Ross MD Signed By: Nick Ross MD Signed Date/Time: 10/22/19 10:49 pm Transcribed By: TON Transcribed Date/Time: 10/22/19 10:49 pm Vital Signs Most recent to oldest [Reference Range]: 1 2 3 4 Height 165 cm (10/23/19 7:01 AM) 165 cm (10/23/19 3:55 AM) 165 cm (10/22/19 11:44 PM) Weight 85.1 kg (10/22/19 7:47 AM) 85.1 kg (10/22/19 6:22 AM) Oxygen Saturation [94-100 %] 98 % (10/23/19 7:01 AM) 99 % (10/23/19 3:55 AM) 98 % (10/22/19 11:44 PM) Pulse Rate [55-90 bpm] 65 bpm (10/23/19 7:01 AM) 69 bpm (10/23/19 3:55 AM) 65 bpm (10/22/19 11:44 PM) Body Mass Index [18.5-24.99] 31.26 *>HHI* (10/22/19 7:47 AM) 31.26 *>HHI* (10/22/19 6:22 AM) Blood Pressure [90-138/55-84 mm Hg] 141/69mm Hg *H* (10/23/19 7:53 AM) 141/69mm Hg *H* (10/23/19 7:01 AM) 119/70mm Hg (10/23/19 3:55 AM) Respiratory Rate [16-30 br/min] 18 br/min (10/23/19 12:22 PM) 18 br/min (10/23/19 11:17 AM) 18 br/min (10/23/19 8:58 AM) 18 br/min (10/23/19 8:58 AM) Temperature [96.8-100.4 DegF] 97.8 DegF (10/23/19 7:01 AM) 97.4 DegF (10/23/19 3:55 AM) 97.8 DegF (10/22/19 11:44 PM) Liters per Minute 2 L/min (10/22/19 11:30 AM) Mode of Delivery (Oxygen) Room air (10/23/19 7:01 AM) Room air (10/23/19 3:55 AM) Room air (10/22/19 11:44 PM) Blood pressure sites Arm, right (10/23/19 7:01 AM) Arm, right (10/23/19 3:55 AM) Arm, right (10/22/19 11:44 PM) Temperature Route Oral (10/23/19 7:01 AM) Oral (10/23/19 3:55 AM) Oral (10/22/19 11:44 PM) Dry Weight 85.1 kg (10/22/19 6:22 AM)
--- OUTSIDE RECORDS SUMMARY | 2023-08-18 09:22 | XMS_ITS | Patient Health Record ---
Author Organization [facility] Address [address] [place] [address] Care Team Providers Care Tower Observer Name Role Phone Jakob Quinn MD Primary Care Provider Miah Jimenez Unavailable [phone] ALLERGIES No Known Allergies RESULTS Component Value Reference Range Notes Pathology (Not yet reviewed by provider) Interpretation: Performing Lab:[facility], [address] [place] [id number] Notes/Report: REASON FOR REFERRAL No Information MEDICATIONS Medication SIG (Take, Route, Frequency, Duration) Notes Start Date End Date Status Calcium 600 600 MG as directed Orally Active Atorvastatin Calcium 20 MG Oral for 90 Active Simvastatin 20 MG TAKE 1 TABLET BY QUEENIE TH IN THE EVENING Oral for 90 Not-Taking Anastrozole 1 MG Oral for 90 A ctive Losartan Potassium 50 MG TAKE 1 TABLET E VERY DAY Oral for 90 Active Citalopram Hydrobromide 40 MG TAKE 1 TABLET BY MOUTH EVERY DAY Oral for 90 Active Vitamin D3 1000 UNIT 1 capsule Orally On ce a day Active buPROPion HCl ER (XL) 150 MG Oral for 90 Active IMMUNIZATIONS Vaccine Route Administration Date Status Comme nts Flu vaccine no Preserv 3 and > Unknown 12/18/2013 Admin istered Influenza Unknown 11/11/2020 Administered Influenza Unknown 01/03/2023 Administered SOCIAL HISTORY Sex Assigned At : Social History Observation Description Sex Assigned At Unknown PROBLEMS Problem Type ICD Code Onset Dates Problem Status W/U Status Risk SNOMED Code Notes Problem Encounter for screening for malignant neoplasm of colon (Z12.11) Active confirmed 757812074 Problem Diarrhea (R19.7) Active confirmed Diarr hea (36291411) Problem Hx of adenomatous colonic polyps (Z86.010) Active confirmed 421336199 Problem Pre-procedural examination (Z01.818) Active confirmed [id number] Problem Diverticulosis of colon (K57.30) Active confirmed Diverticulosi s of colon (200970803) VITAL SIGNS Temperature 96.8 degrees Fahrenheit 06/07/2023 Blood pressure diastolic 00 mm Hg 06/07/2023 Height 65.5 in 06/07/2023 Blood pressure systolic 000 mm Hg 06/07/2023 Weight 180 lbs 06/07/2023 BMI 29.49 kg/m2 06/07/2023 Encounters Encounter Location Date Provider Diagnosis [facility] [place] Out[facility] [address] [place], [place] [id number] 08/14/2023 Miah Randall [facility] [address] [place] [address] 06/07/2023 Miah Randall Hx of adenomatous colonic polyps Z86.010 ; Diarrhea R19.7 ; Encounter for screening for malignant neoplasm of colon Z12.11 and Pre-procedural examination Z01.818 ASSESSMENTS Encounter Date Diagnosis Assessment Notes Treatment Notes Treatment Clinical Notes 06/07/2023 Diarrhea (ICD-10 - R19.7) 06/07/2023 Hx of adenomatous colonic polyps (ICD-10 - Z86.010) 06/07/2023 Encounter for screening for malignant neoplasm of colon (ICD-10 - Z12.11) 06/07/2023 Pre-procedural examination (ICD-10 - Z01.818) PLAN OF TREATMENT Pending Test Test Name Order Date Pathology 08/14/2023 Future Test Test Name Order Date COLONOSCOPY 11/06/2014 COLONOSCOPY 07/13/2021 COLONOSCOPY 06/07/2023 Insurance Providers Payer Name Payer Address Payer Phone Subscriber Number Group Number Insured Name Patient Relationship to Insured Coverage Start Date Coverage End Date MEDICARE OF [place] [address] [place] [address] [id number] NABOR DENISE Self - patient is the insured [facility] [employer] [address] [place] [address] [id number] NABOR DENISE Self - patient is the insured MEDICAL (GENERAL) HISTORY Medical History History ICD Code Screening Colonoscopy 2004--negative except for sigmoid diverticulosis and internal hemorrhoids Hypertension Denies TN,DM,CVA,Lung disease,renal dise ase Negative chest pain w/u at [facility] in 09/2014 --neg.ETT Anxiety Hyperlipidemia Left sided Breast cancer 06/12 021--lumpectomy, neg. nodes, and a weekly treatment with XRT for 5 weeks--se[place] [facility] [place]oscopy in 01/2015 with tubular bernardino omas removed Colonoscopy in August of 2021 with 2 tubular adenomas removed from the ascending colon. One was somewhat flat and larger at about 15 mm. They were both removed. Surgical History Surgery Date(Month/Year) Knee replacements 2019 and 2020 Eye surgery-Lasik Cataract surgery on left eye Breast cancer as above
--- OUTSIDE RECORDS SUMMARY | 2023-08-18 09:22 | XMS_ITS | Continuity of Care Document ---
Author Organization [facility] ter Address [address] [place] [address]- Care Team Providers Care Certified Hyperbaric Technician Name Role Phone Jakob Quinn MD Primary Care Physician [phone] Encounter [facility] [place] Date(s): 10/22/19 - 11/21/[address] [address]- [facility] Attending Physician: Not on Staff, Attending MD Admitting Physician: Not on Staff, Admitting MD Referring Physician: Not on Staff, Referring MD Allergies, Adverse Reactions, Alerts Substance Reaction [...]
--- OUTSIDE RECORDS SUMMARY | 2023-08-18 09:22 | XMS_ITS | Continuity of Care Document ---
Author Organization [facility] ter Address [address] [place] [address]- Care Team Providers Care Tallow Maker Name Role Phone Jakob Quinn MD Primary Care Physician [place] [facility] [place] - 11/07/[address] [address]- [facility] Attending Physician: Aravind Boogie MD Admitting Physician: [...]
== END 2023-08-14 15:31 | disposition home or self-care (01) ==
PROVIDERS: PCP Nurse Practitioner Family; Visit Provider Internal Medicine
PROC: 0DJD8ZZ Inspection of Lower Intestinal Tract, Via Natural or Artificial Opening Endoscopic (ICD-10-PCS; CPT 45378; principal; 2023-08-14 12:40)
DX: Z12.11 Encounter for screening for malignant neoplasm of colon (principal); D12.2 Benign neoplasm of ascending colon; D12.3 Benign neoplasm of transverse colon; D12.6 Benign neoplasm of colon, unspecified; K57.30 Diverticulosis of large intestine without perforation or abscess without bleeding; K64.8 Other hemorrhoids; K64.4 Residual hemorrhoidal skin tags; Z86.010 Personal history of colon polyps; I10 Essential (primary) hypertension; Z79.899 Other long term (current) drug therapy
CPT/HCPCS: 45385; 45380; 88305; J2704

== ENCOUNTER 2023-08-29 07:51 | Outpatient (REF) | payer MEDICARE, OTHER, SELFPAY ==
--- NOTE | ~2023-08-29 | MM_ITS ---
EXAMINATION: BONE DENSITOMETRY CLINICAL INDICATION: Asymptomatic menopausal state. COMPARISON: Previous BD dated 10/08/2020 and baseline BD dated 06/26/2007. TECHNIQUE: Using a [employer] DXA System (software version: 13.1) manufactured by [employer], dual-energy x-ray absorptiometry was performed of the lumbar spine and left hip. The images are of good technical quality. Summary results are attached. FINDINGS: LEFT FEMUR, NECK: Current: BMD 0.893 g/cm2, Z-score 0.5, T-score -1.0, normal. Prior: BMD 0.819 g/cm2. Baseline: BMD 0.864 g/cm2. LEFT FEMUR, TOTAL: Current: BMD 0.877 g/cm2, Z-score 0.3, T-score -1.0, normal, 3.3% increase from previous, 4.5% decrease from baseline (<5% change is not significant). Prior: BMD 0.849 g/cm2. Baseline: BMD 0.918 g/cm2. AP SPINE L1-L4: Current: BMD 1.171 g/cm2, Z-score 1.2, T-score -0.1, normal, 5.5% decrease from previous, 5.8% decrease from baseline (<5% change is not significant). Prior: BMD 1.239 g/cm2. Baseline: BMD 1.243 g/cm2. IDENTIFIED RISK FACTORS: Menopause. HISTORY OF FRACTURE: None listed. MEDICATIONS: Calcium supplements or multivitamin, vitamin D. MM/XR DEXA axial skeleton IMPRESSION: 1. DIAGNOSIS: Normal bone density based on the lowest T-score value of -1.0 in the femoral neck and total femur applying World Health Organization criteria. 2. 10-YEAR FRACTURE RISK PREDICTION, FRAX: According to the guidelines, FRAX calculation should only be performed on patients in the osteopenia bone density category. Therefore, FRAX was not performed on this patient. 3. Treatment Recommendations: NOF guidelines recommend consideration for treatment in postmenopausal women and men age 50 and older presenting with the following: -A hip or vertebral (clinical or morphometric) fracture. -T-score less than or equal to -2.5 at the femoral neck or spine after appropriate evaluation to exclude secondary causes. -Low bone mass at the hip or spine and a 10-year fracture probability by FRAX of greater than or equal to 3% for hip fracture or greater than or equal to 20% for major osteoporotic fracture based on the [place] adapted WHO algorithm. 4. Other Recommendations: All treatment decisions require clinical judgment and consideration of individual patient factors, including patient preferences, comorbidities, previous drug use, risk factors not captured in the FRAX model (e.g. frailty, falls, vitamin D deficiency, increased bone turnover, interval significant decline in bone density) and possible under or overestimation of fracture risk by FRAX. FUTURE SCAN RECOMMENDATION: People with diagnosed cases of osteoporosis or at high risk for fracture should have regular bone mineral density tests. For patients eligible for Medicare, routine testing is allowed once every 2 years. The testing frequency can be increased to one year for patients who have rapidly progressing disease, those who are receiving or discontinuing medical therapy to restore bone mass, or have additional risk factors.
== END 2023-08-29 07:52 | disposition home or self-care (01) ==
LOC: HO.MAMMO 07:51
PROVIDERS: PCP Internal Medicine; Visit Provider Internal Medicine
DX: Z13.820 Encounter for screening for osteoporosis (principal); Z78.0 Asymptomatic menopausal state
CPT/HCPCS: 77080